=== PATIENT | male | born 1995 | race Caucasian/White ===

== ENCOUNTER 2020-01-08 17:30 | Emergency (ER) | payer MEDICAID, SELFPAY ==
[2020-01-08 18:10] VITALS: BMI 24.1
[2020-01-08 18:13] VITALS: PULSE 89; RESP 16; TEMP 36.9; O2SAT 98
[2020-01-08 19:01] LABS: Rapid Strep A Test Negative (Negative)
[2020-01-08 19:16] LABS: Influenza A by IFA Negative (Negative); Influenza B by IFA Negative (Negative)
--- NOTE | 2020-01-08 19:40 | W.ED.GENADLT ---
HPI - General Adult General: Chief complaint: General Medical Stated complaint: cold symptoms Time Seen by Provider: 01/08/20 19:25 History of Present Illness: HPI narrative: Healthy 24-year-old male, sick for the last 5 to 6 days. Fevers, chills, productive cough. He has had some nausea with no vomiting. MD complaint: 5 Onset (ago): day(s) Severity: moderate Pain Consistency: intermittent Relieving factors: cold therapy Associated symptoms: Reports cough, dyspnea, fevers/chills, headache(s) and short of breath; Deny chest pain, confusion, rash, palpitations or vomiting Review of Systems Const: Reports: fever and chills Eyes: Denies: change in vision or blurry vision ENMT: Reports: painful swallowing, post nasal drip and facial/sinus pain; Denies: swelling of lips/tongue, bleeding gums, dental pain, Change in hearing or nose bleeds Card: Reports: shortness of breath on exertion; Denies: chest pain, palpitations, irregular heart rhythm, edema, swelling of feet/ankles or shortness of breath when lying down Resp: Reports: shortness of breath GI: Denies: vomiting : Denies: difficulty urinating, painful urination, urinary frequency, urinary urgency or blood in urine Musc: Reports: neck pain and back pain; Denies: redness or joint warmth Skin/Breast: Denies: rash, itching or redness Neuro: Reports: headache; Denies: dizziness, vertigo or confusion Psych: Denies: anxiety PFSH ED PFSH: Social History Smoking and tobacco status: current every day smoker Physical Exam Const: GENERAL APPEARANCE: well developed ORIENTATION/CONSCIOUSNESS: Yes oriented to person, Yes oriented to place and Yes oriented to time HENMT: COMMON NORMALS: normocephalic, external ears normal and external nose normal HEAD & SCALP: normocephalic; no scalp tenderness FACE & SINUS: normal facial exam NOSE: external nose normal and no nasal discharge EXTERNAL EAR: Yes external ears normal MOUTH: tongue normal THROAT: posterior oropharynx abnormal edema and erythema; posterior oropharynx not normal and no peritonsillar mass Eye: COMMON NORMALS: PERRL, EOMs intact bilaterally and conjunctivae normal EYELID: eyelids normal CONJUNCTIVA: Yes conjunctivae normal PUPIL: Yes PERRL Chest: COMMONS NORMALS: inspection of chest normal CHEST: No tenderness Resp: COMMON NORMALS: clear to auscultation bilaterally EFFORT & INSPECTION: No tachypneic, No respiratory distress, No retractions, No uses accessory muscles and No tracheal deviation AUSCULTATION: clear to auscultation bilaterally, no rhonchi, no wheezes and lung sounds not diminished Cardio: COMMON NORMALS: regular rate and regular rhythm RATE: regular rate RHYTHM: regular rhythm HEART SOUNDS: no murmurs PERIPHERAL PULSES: radial pulses present GI: INSPECTION: No abdominal distension AUSCULTATION: No hyperactive bowel sounds and No hypoactive bowel sounds PALPATION: No guarding and No rigid PERCUSSION: no dullness to percussion and no tympanic to percussion Neuro: SENSORIUM/ORIENTATION: Yes oriented to person, Yes oriented to place and Yes oriented to time Psych: COMMON NORMALS: mental status grossly normal Skin: NARRATIVE SKIN EXAM: Macular rash right upper extremity Course Vital Signs: Vital signs: Vital Signs Temperature 98.2 F 01/08/20 20:36 Pulse Rate 76 01/08/20 20:36 Respiratory Rate 18 01/08/20 20:36 Blood Pressure 122/69 01/08/20 20:36 Pulse Oximetry 97 01/08/20 20:36 MDM - General Adult Lab Data: Labs: Lab Results 01/08/20 01/08/20 Range/Units 18:14 18:14 Influenza Type A A g Negative (Negative) POC Influenza B Ag Negative (Negative) Group A Strep Rapi d Negative (Negative) Discharge Plan Discharge Patient Disposition: Home, Self-Care Condition: Stable Prescriptions: New Zithromax 250 mg tablet See Rx Instructions .ROUTE .COMPLEX Qty: 6 RF: 0 ketorolac 10 mg tablet 10 mg PO Q6H PRN (Reason: pain) 1 Days RF: 10 Discharge Orders: Discharge Order (Routine); Ordered 01/08/20 Ordered By: Carlos Nj Discharge Diet: Advance as tolerated Discharge Activity: Increase activity as tolerated Patient Instructions: Acute Bronchitis (ED) Activity Restrictions/Additional Instructions: Return for fever greater than 100 despite 2-3 doses of antibiotics, worsening cough, congestion, other symptoms despite treatment. Discharge Date/Time: 01/08/20 20:36 Coding Level of Care Code ED Manager Clinical Informatics for Chg Fwd Exam Comprehensive
[2020-01-08] MEDS: azithromycin 250 mg Tablet 500 MG PO (20:15)
[2020-01-08] MEDS: ketorolac 10 mg Tablet PO (20:18)
[2020-01-08 20:36] VITALS: BP 122/69; PULSE 76; RESP 18; TEMP 36.8; O2SAT 97
--- NOTE | 2020-01-08 20:40 | PC.NURSE ---
RN reviewed and agrees with assessment
== END 2020-01-08 20:36 | disposition home or self-care (01) ==
PROVIDERS: Emergency Medicine; Emergency Provider Emergency Medicine
DX: R50.9 Fever, unspecified (principal); R05 Cough; R11.0 Nausea; R06.00 Dyspnea, unspecified; R51 Headache; R06.02 Shortness of breath; J02.9 Acute pharyngitis, unspecified; R09.82 Postnasal drip; M54.5 Low back pain; M54.9 Dorsalgia, unspecified; F17.200 Nicotine dependence, unspecified, uncomplicated
CPT/HCPCS: 87081; 87804; 87880; 99282; 99283; A9270; Q0144

== ENCOUNTER 2023-12-18 13:50 | Emergency (ER) | payer OTHER, SELFPAY ==
[2023-12-18 13:59] VITALS: BP 133/75; PULSE 81; RESP 16; TEMP 36.7; O2SAT 98; BMI 20.7
--- NOTE | 2023-12-18 14:50 | ED_ITS ---
HPI - Wound/Laceration General: Chief Complaint: Wound/Laceration Stated Complaint: finger injury Time Seen by Provider: 12/18/23 14:50 History of Present Illness: 28-year-old male patient comes in with l eft thumb injury. Patient was slicing vegetables and cut the tip of his thumb with a sharp knife. Patient has a superficial skin avulsion approximately 1 cm x 5 mm. Normal exam otherwise. Patient reports tetanus up-to-date. Review of Systems General: Reports: 10 or more systems reviewed and unremarkable except in HPI and below PFSH ED PFSH: Social History Smoking and tobacco/nicotine status: current every day tobacco/nicotine user Physical Exam Const: COMMON NORMALS: alert HENMT: COMMON NORMALS: normocephalic HEAD & SCALP: normocephalic Neck/C-Spine: COMMON NORMALS: no meningeal signs Resp: COMMON NORMALS: normal respiratory effort and clear to auscultation bilaterally AUSCULTATION: clear to auscultation bilaterally Cardio: COMMON NORMALS: regular rate RATE: regular rate GI: COMMON NORMALS: Soft to palpation and non-tender PALPATION: Yes Soft to palpation Back/Pelvis: COMMON NORMALS: thoracic and lumbar spine normal to inspection Extremity: LEFT UPPER EXTREMITY: Yes hand & digits (1 cm skin avulsion distal thumb) Neuro: SENSORIUM/ORIENTATION: Yes alert MENINGEAL SIGNS: Yes no meningeal signs Skin: TRAUMA: laceration (Skin avulsion distal thumb) Course Vital Signs: Vital signs: Vital Signs Temperature 98.1 F 12/18/23 13:59 Pulse Rate 81 12/18/23 13:59 Respiratory Rate 16 12/18/23 13:59 Blood Pressure 133/75 12/18/23 13:59 Pulse Oximetry 98 12/18/23 13:59 MDM - Wound/Laceration Medical Decision Making 28-year-old male patient comes in today with skin avulsion to the distal left thumb. On exam normal tendon function, normal cap refill, bleeding is controlled. Patient reports tetanus up-to-date. Differential diagnosis includes foreign body, fracture, laceration. No signs of fracture or foreign body. Wound was cleaned and bacitracin ointment was applied. Wound care instructions to patient. Patient reported understanding agreed to plan. No radiology studies performed this visit Discharge Plan Discharge Patient Disposition: Home Clinical Impression: Avulsion of skin of finger Qualifiers: Encounter type: initial encounter Qualified Code(s): S61.209A - Unspecified open wound of unspecified finger without damage to nail, initial encounter Condition: Stable Prescriptions: New bacitracin 500 unit/gram ointment 1 applic topical DAILY Qty: 28 0RF No Action Zithromax 250 mg tablet See Rx Instructions .ROUTE .COMPLEX Qty: 6 0RF Rx Instructions: take 500 mg today (day 1), then 250 mg for 4 days (days 2-5) ketorolac 10 mg tablet 10 mg PO Q6H PRN (Reason: pain) 1 Days 10RF Discharge Orders: Discharge ED (Routine); Ordered 12/18/23 Ordered By: Christiano Sanchez Discharge Diet: Usual diet Discharge Activity: Increase activity as tolerated Patient Instructions: Wound Care (General) Activity Restrictions/Additional Instructions: Clean wound daily with mild soap and water, apply bacitracin antibiotic ointment, then apply a supportive protective dressing. Is important keep the wound clean and dry. Wound should heal over the next 2 weeks. Follow-up with primary care as needed. Return to ED for worsening symptoms such as increasing redness and swelling, purulent drainage, high fever, or new concerns. Coding Level of Care Code ED Tableau Analyst for Paris Eaton
[2023-12-18] MEDS: bacitracin ointment Pkt 1 EACH TOPICAL (14:59)
== END 2023-12-18 15:02 | disposition home or self-care (01) ==
PROVIDERS: Emergency Provider Nurse Practitioner Family
DX: S61.002A Unspecified open wound of left thumb without damage to nail, initial encounter (principal); Z72.0 Tobacco use; W26.0XXA Contact with knife, initial encounter; Y93.G1 Activity, food preparation and clean up
CPT/HCPCS: 99283

== ENCOUNTER 2024-11-24 19:22 | Emergency (ER) | payer MEDICAID, SELFPAY ==
[2024-11-24 19:26] VITALS: BP 111/70; PULSE 105; RESP 16; TEMP 36.3; O2SAT 98; BMI 21.6
--- NOTE | 2024-11-24 20:50 | ECG_ITS ---
[facility]: 2024-[facility]24 Pat Name: Ivan Candelaria Department: Room: Gender: Male Digital Media Buyer: : 1995 Requested By: Susan Mondragon Order Number: [id number] Amairani MD: JERMAN HOLLOWAY Measurements Intervals Coila Rate: 83 P: 49 WA: 135 QRS: 100 QRSD: 97 T: 72 QT: 342 QTc: 402 Interpretive Statements SINUS RHYTHM BORDERLINE RIGHT AXIS DEVIATION [QRS AXIS > 90] No previous ECG available for comparison Electronically Signed On 11-26-2024 23:28:49 DIMETHYLANILINE SULFATOR OPERATOR by JERMAN HOLLOWAY [id number]
--- NOTE | 2024-11-24 21:58 | CTR_ITS ---
PROCEDURE INFORMATION: Exam: CT Head Without Contrast Exam date and time: 11/24/2024 10:16 PM Age: 29 years old Clinical indication: Dizziness; Additional info: Possible seizure, headache, vomiting TECHNIQUE: Imaging protocol: Computed tomography of the head without contrast. Radiation optimization: All CT scans at this facility use at least one of these dose optimization techniques: automated exposure control; mA and/or kV adjustment per patient size (includes targeted exams where dose is matched to clinical indication); or iterative reconstruction. COMPARISON: No relevant prior studies available. RADIATION DOSE METRICS: Total DLP (mGy-cm): 991.03 FINDINGS: Brain: No focal hemorrhage or midline shift is identified. Mild falcine density is probably artifactual/physiologic. Cerebral ventricles: No ventriculomegaly or evidence of acute hydrocephalus. Paranasal sinuses: A few areas of mild sinus mucosal thickening. Mastoid air cells: Visualized mastoid air cells are well aerated. Bones: Unremarkable. No acute fracture. Soft tissues: Unremarkable. CT/CT head wo con* [id number] IMPRESSION: No acute intracranial abnormality.
--- NOTE | 2024-11-24 22:00 | W.ED.NAVMDI ---
HPI - Nausea/Vomiting/Diarrhea General: Chief complaint: Nausea/Vomiting/Diarrhea Stated complaint: slurred speech confused n/v passed out Time Seen by Provider: 11/24/24 21:39 Source: patient Mode of arrival: ambulatory Limitations: no limitations History of Present Illness: Patient is a 29-year-old male with no pertinent past medical history who reports to the emergency department complaining of vomiting throughout the day. This morning, patient spouse reports getting a call from friend at work saying that the patient had dropped unexpectedly, hit the side of his face on the way down. Patient reports that he remembers feeling anxious and having a panic attack prior to this happening, has no history of seizures however does state that he did bite his lip with the incident. He notes having intermittent confusion and altered mentation throughout the day as well as 6-7 episodes of vomiting, no hematemesis. At this time he states he just feels tired and like he could sleep all day. No chest pain, shortness of breath, headache, visual changes, or other focal neurological symptoms reported. Spouse states that she was not told of any jerking, seizing, or stiffening with the incident today. Patient denies any drug or alcohol use, states he smokes marijuana recreationally. No other concerning elements with history or exam at this time. MD elicited complaint: vomiting Onset (ago): hour(s) Associated nausea: Yes Associated abdominal pain: No Associated symtoms: Reports fatigue, malaise, nausea and syncope; Denies change in vision, chest pain, dysuria, headache(s) or palpitations Related Data Previous Rx's Medication Instructions Recorded azithromycin 250 mg tablet See Rx Instructions PO .COMPLEX #6 01/08/20 (Zithromax) tabs ketorolac 10 mg tablet 10 mg PO Q6H PRN pain 1 day 01/08/20 bacitracin 500 unit/gram topical 1 applic topical DAILY #28 grams 12/18/23 ointment ondansetron HCl 4 mg tablet 4 mg PO Q8H #30 tabs 11/24/24 Allergies Allergy/AdvReac Type Severity Reaction Status Date / Time No Known Allergies Allergy Verified 01/08/20 18:14 Review of Systems General: Reports: 10 or more systems reviewed and unremarkable except in HPI and below Const: Reports: fatigue and malaise; Denies: fever(s) or chills Eyes: Denies: change in vision ENMT: Denies: throat pain, ear or mastoid pain or nasal discharge Card: Reports: syncope; Denies: chest pain, palpitations, swelling of feet/ankles or lightheadedness Resp: Denies: dyspnea, productive cough or wheezing GI: Reports: nausea and vomiting; Denies: abdominal pain or diarrhea : Denies: flank pain, difficulty urinating, dysuria or urinary frequency Musc: Denies: neck pain, back pain or joint pain Skin/Breast: Denies: rash Neuro: Reports: confusion; Denies: headache(s), numbness in extremities or weakness in extremities PFSH ED PFSH: Social History Smoking and tobacco/nicotine status: current every day tobacco/nicotine user Physical Exam Const: COMMON NORMALS: no acute distress, patient oriented x3 and no limitations GENERAL APPEARANCE: cooperative, comfortable and well developed ORIENTATION/CONSCIOUSNESS: Yes awake, Yes oriented to person, Yes oriented to place and Yes oriented to time HENMT: COMMON NORMALS: normocephalic, atraumatic and hearing grossly normal bilaterally HEAD & SCALP: normocephalic and atraumatic OTHER: Superficial bite wound to inner lower lip Eye: COMMON NORMALS: Equal, round and reactive pupils present, EOMs intact bilaterally and conjunctivae normal CONJUNCTIVA: Yes conjunctivae normal PUPIL: Yes Equal, round and reactive pupils present Neck/C-Spine: COMMON NORMALS: full ROM, supple and no JVD Resp: COMMON NORMALS: normal respiratory effort, No retractions, No use of accessory muscles and clear to auscultation bilaterally AUSCULTATION: clear to auscultation bilaterally Cardio: COMMON NORMALS: no JVD, regular rate, regular rhythm, No clicks present (Cardio), No murmurs present (Cardio) and No rub (Cardio) RATE: regular rate RHYTHM: regular rhythm GI: COMMON NORMALS: Normal to inspection, nondistended, normoactive bowel sounds present, Soft to palpation and non-tender AUSCULTATION: Yes normoactive bowel sounds PALPATION: Yes Soft to palpation RECTAL EXAM: Yes deferred Extremity: COMMON NORMALS: normal to inspection, full ROM and capillary refill normal Neuro: COMMON NORMALS: patient oriented x3, CN's II-XII intact bilaterally, moves all extremities, no focal motor deficits and no sensory deficits noted SENSORIUM/ORIENTATION: Yes oriented to person, Yes oriented to place and Yes oriented to time Psych: COMMON NORMALS: mental status grossly normal and Normal thought process present THOUGHT PROCESS: Normal thought process present Skin: COMMON NORMALS: no rashes or lesions noted GENERAL SKIN EXAM: no rashes or lesions noted Course Vital Signs: Vital signs: Vital Signs Temperature 97.3 F L 11/24/24 19:26 Pulse Rate 79 11/24/24 23:50 Respiratory Rate 16 11/24/24 19:26 Blood Pressure 110/71 11/24/24 23:50 Pulse Oximetry 98 11/24/24 23:50 Oxygen Delivery Me thod Room Air 11/24/24 19:26 MDM - Nausea/Vomiting/Diarrhea Medical Decision Making Patient presented with syncopal type episode this morning, vomiting throughout the day. Neurological exam was unremarkable. No history of seizures, questionable seizure-like activity by spouse in the room. Patient did bite his lip with the incident, no injuries from the fall. White count elevated, likely secondary to the vomiting he has been having throughout the day. Creatinine kinase was unremarkable, urine drug screen positive for marijuana, CT head unremarkable. Cannot fully rule out that this was a seizure or seizure-like activity, thus informed him to follow-up with primary care for further evaluation potential referral to neurology if he does not get better over the next few days. I believe the vomiting could be secondary to viral gastroenteritis will treat symptomatically with Zofran and encourage plenty of fluids. Informed him that with any acute worsening he is to return to the emergency department immediately, he agrees with this plan. He did report to me that he was having a panic attack prior to falling, this could be a psychogenic incident as well. Regardless he will follow-up with primary care as instructed. I did discuss this case with Dr. Ordaz who agrees with discharge. Lab Data 11/24/24 21:59 11/24/24 21:[address] 11/24/24 21:58 IMPRESSION: No acute intracranial abnormality. Laboratory Results WBC 17.17 10^3/uL (3.29-11.43) H 11/24/24 21:59 RBC 5.68 10^6/uL (3.85-5.65) H 11/24/24 21:59 Hgb 17.20 g/dL (11.27-16.99) H 11/24/24 21:59 Hct 48.8 % (37-53) 11/24/24 21:59 MCV 85.9 fl (82-101) 11/24/24 21:59 MCH 30.3 pg (27-33) 11/24/24 21:59 MCHC 35.2 g/dL (30-55) 11/24/24 21:59 RDW 11.5 % (12.1-15.1) L 11/24/24 21:59 Plt Count 211 10^3/cmm (157-399) 11/24/24 21:59 MPV 10.3 fL (7.4-10.4) 11/24/24 21:59 Neut % (Auto) 89.4 % 11/24/24 21:59 Lymph % (Auto) 3.5 % 11/24/24:59 [place] % (Auto) 6.5 % 11/24/24:59 Eos % (Auto) 0.1 % 11/24/24:59 Baso % (Auto) 0.2 % 11/24/24:59 Neut # (Auto) 15.34 10^3/uL (1.8-7.7) H 11/24/24 21:59 Lymph # (Auto) 0.6 10^3/uL (0.8-4.8) L 11/24/24 21:59 [place] # (Auto) 1.1 10^3/uL (0.2-0.9) H 11/24/24:59 Eos # (Auto) 0.0 10^3/uL (0.0-0.8) 11/24/24 21:59 Baso # (Auto) 0.0 10^3/uL (0.0-0.1) 11/24/24:59 Nucleated RBC % (auto) 0 % 11/24/24: Nucleated RBCs # 0.0 /100WBC 11/24/24 21:59 Sodium 135 mmol/L (136-145) L 11/24/24 21:59 Potassium 4.2 mmol/L (3.5-5.1) 11/24/24 21:59 Chloride 97 mmol/L (98-107) L 11/24/24 21:59 Carbon Dioxide 25 mmol/L (22-29) 11/24/24 21:59 Anion Gap 17.2 (5-19) 11/24/24 21:59 BUN 17 mg/dL (6-20) 11/24/24 21:59 Creatinine 0.9 mg/dL (0.7-1.2) 11/24/24 21:59 GFR Calculation 99.1 mL/min (90-130) 11/24/24 21:59 Glucose 125 mg/dL (65-115) H 11/24/24 21:59 Calculated Osmolality 283 mOsm/kg (285-295) L 11/24/24 21:59 Calcium 9.4 mg/dL (8.5-10.5) 11/24/24 21:59 Total Bilirubin 1.6 mg/dL (0.15-1.2) H 11/24/24 21:59 AST 19 U/L (0-40) 11/24/24 21:59 ALT 21 U/L (0-41) 11/24/24 21:59 Alkaline Phosphatase 64 U/L (40-130) 11/24/24 21:59 Creatine Kinase 90 U/L (39-308) 11/24/24 21:59 Total Protein 7.0 g/dL (6.6-8.7) 11/24/24 21:59 Albumin 4.8 g/dL (3.5-5.2) 11/24/24 21:59 Globulin 2.2 g/dL (1.3-4.6) 11/24/24 21: Lipase 26 U/L (13-60) 11/24/24 21:59 Urine Color Yellow (Yellow) 11/24/24 22:32 Urine Appearance Clear (CLEAR) 11/24/24 22:32 Urine pH 5.5 (5-7) 11/24/24 22:32 Ur Specific [place] 1.034 (1.005-1.030) H 11/24/24:32 Urine Protein Trace (Negative) A 11/24/24: Urine Glucose (UA) Negative (Normal) 11/24/24 22:32 Urine Ketones Trace (Negative) 11/24/24 22:32 Urine Blood Negative (Negative) 11/24/24: Urine Nitrate Negative (Negative) 01/15/25 22:32 Urine Bilirubin Negative (Negative) 11/24/24 22:32 Urine Urobilinogen 1.0 mg/dL (Negative) 11/24/24 22:32 Ur Leukocyte Esterase Negative (Negative) 11/24/24 22:32 Urine RBC 0-2 /hpf (0-2) 11/24/24 22:32 Urine WBC 0-5 /hpf (0-5) 11/24/24 22:32 Ur Squamous Epith Cells 0-5 /hpf (0-5) 11/24/24 22:32 Amorphous Sediment Not Reportable 11/24/24 22:32 Urine Bacteria None seen /hpf (NONE) 11/24/24 22:32 Hyaline Casts 7.85 /lpf 11/24/24 22:32 Urine Opiates Screen Negative ng/mL (Negative) 11/24/24 22:32 Ur Barbiturates Screen Negative ng/mL (Negative) 11/24/24 22:32 Ur Phencyclidine Scrn Negative ng/mL (Negative) 11/24/24 22:32 Ur Amphetamines Screen Negative ng/mL (Negative) 11/24/24 22:32 U Benzodiazepines Scrn Negative ng/mL (Negative) 11/24/24 22:32 Urine Cocaine Screen Negative ng/mL (Negative) 11/24/24 22:32 U Marijuana (THC) Screen Positive ng/mL (Negative) H 11/24/24 22:32 All radiology interpretation(s) finalized by discharge Discharge Plan Discharge Patient Disposition: Home Clinical Impression: Gastroenteritis, Anxiety, Syncope and collapse Condition: Stable Prescriptions: New ondansetron HCl 4 mg tablet 4 mg PO Q8H Qty: 30 0RF No Action Zithromax 250 mg tablet See Rx Instructions .ROUTE .COMPLEX Qty: 6 0RF Rx Instructions: take 500 mg today (day 1), then 250 mg for 4 days (days 2-5) ketorolac 10 mg tablet 10 mg PO Q6H PRN (Reason: pain) 1 Days 10RF bacitracin 500 unit/gram ointment 1 applic topical DAILY Qty: 28 0RF Discharge Orders: Discharge ED (Routine); Ordered 11/24/24 Ordered By: Sky Hartmann Patient Instructions: Gastroenteritis (ED) Activity Restrictions/Additional Instructions: Zofran for nausea. Make sure that you drink plenty of fluids. Close follow-up with your primary care provider. Please return with any high fever, worsening vomiting or diarrhea, further episodes of passing out, or other concerning symptoms. Coding Level of Care Code ED Shuttle Driver for Paris Eaton
[2024-11-24 22:41] LABS: Alanine Aminotransferase 21 U/L (0-41); Albumin Level 4.8 g/dL (3.5-5.2); Alkaline Phosphatase 64 U/L (40-130); Anion Gap 17.2 (5-19); Aspartate Amino Transferase 19 U/L (0-40); Blood Urea Nitrogen 17 mg/dL (6-20); Calcium 9.4 mg/dL (8.5-10.5); Carbon Dioxide 25 mmol/L (22-29); Chloride 97 mmol/L (98-107); Creatine Phosphokinase 90 U/L (39-308); Creatinine Clr Calc Pharmacy 102.6782; Globulin 2.2 g/dL (1.3-4.6); Glomerular Filtration Rate 99.1 mL/min (90-130); Glucose 125 mg/dL (65-115); Lipase 26 U/L (13-60); Osmolality Calculated 283 mOsm/kg (285-295); Potassium 4.2 mmol/L (3.5-5.1); Sodium 135 mmol/L (136-145); Total Bilirubin 1.6 mg/dL (0.15-1.2)
[2024-11-24 22:45] LABS: Basophils % 0.2 %; Eosinophils % 0.1 %; Hematocrit 48.8 % (37-53); Lymphocytes # 0.6 10^3/uL (0.8-4.8); Lymphocytes % 3.5 %; Mean Corpuscular HGB Conc 35.2 g/dL (30-55); Mean Corpuscular Hemoglobin 30.3 pg (27-33); Mean Corpuscular Volume 85.9 fl (82-101); Mean Platelet Volume 10.3 fL (7.4-10.4); Monocytes # 1.1 10^3/uL (0.2-0.9); Monocytes % 6.5 %; Neutrophils # 15.34 10^3/uL (1.8-7.7); Neutrophils % 89.4 %; Nucleated Red Blood Cells % 0 %; Platelet Count 211 10^3/cmm (157-399); Red Blood Count 5.68 10^6/uL (3.85-5.65); Red Cell Distribution Width 11.5 % (12.1-15.1); White Blood Count 17.17 10^3/uL (3.29-11.43)
[2024-11-24 22:52] LABS: Bilirubin Urine Negative (Negative); Blood Urine Negative (Negative); Glucose Urine UA Negative (Normal); Ketones Urine Trace (Negative); Leukocyte Esterase Urine Negative (Negative); Nitrate Urine Negative (Negative); Protein Urine Trace (Negative); Urine Appearance Clear (CLEAR); Urine Color Yellow (Yellow); pH Urine 5.5 (5-7)
[2024-11-24 22:57] LABS: Add Urine Microscopic? YES; Bacteria Urine None Seen /hpf; Hyaline Casts Urine 7.85 /lpf; RBC Urine 0-2 /hpf (0-2); Squamous Epithelial Cell Urine 0-5 /hpf (0-5); WBC Urine 0-5 /hpf (0-5)
[2024-11-24 22:59] LABS: Amphetamines Screen Urine Negative (Negative); Barbiturates Screen Urine Negative (Negative); Benzodiazepines Screen Urine Negative (Negative); Cocaine Screen Urine Negative (Negative); Opiate Screen Urine Negative (Negative); PCP Screen Urine Negative (Negative); THC Screen Urine Positive (Negative)
[2024-11-24 23:16] LABS: Specific Gravity, Urine 1.034 (1.005-1.030); UA Slide Review UA Slide Review Perf
[2024-11-24] MEDS: acetaminophen 500 mg Tablet 1000 MG PO (23:48)
[2024-11-24] MEDS: ondansetron 4 MG Tablet 8 MG PO (23:48)
[2024-11-24] MEDS: ibuprofen 600 mg Tablet PO (23:48)
[2024-11-24 23:50] VITALS: BP 110/71; PULSE 79; O2SAT 98
== END 2024-11-24 23:51 | disposition home or self-care (01) ==
PROVIDERS: Emergency Medicine; Emergency Provider Physician Assistant
DX: K52.9 Noninfective gastroenteritis and colitis, unspecified (principal); F41.9 Anxiety disorder, unspecified; R55 Syncope and collapse; Z72.0 Tobacco use
CPT/HCPCS: 36415; 70450; 80053; 80306; 81001; 82550; 83690; 85025; 93005; 99284; Q0162